=== PATIENT | male | born 1940 | race Caucasian/White ===

== ENCOUNTER → 2018-04-09 | Outpatient (CLI) | payer OTHER | END | disposition home or self-care (01) | LOC: ROC 04-03 15:23 | PROVIDERS: ATTEND Radiology Radiation Oncology | DX: C76.0 Malignant neoplasm of head, face and neck (principal); E78.5 Hyperlipidemia, unspecified; I10 Essential (primary) hypertension; M19.90 Unspecified osteoarthritis, unspecified site | CPT/HCPCS: 99215; G0463 ==

== ENCOUNTER 2018-04-16 10:08 | Outpatient (CLI) | payer OTHER | END 2018-04-16 23:59 | disposition home or self-care (01) | LOC: PETCFH 10:08 | PROVIDERS: ATTEND Radiology Radiation Oncology | DX: C79.89 Secondary malignant neoplasm of other specified sites (principal); K80.20 Calculus of gallbladder without cholecystitis without obstruction; C10.8 Malignant neoplasm of overlapping sites of oropharynx; R59.1 Generalized enlarged lymph nodes; Z93.0 Tracheostomy status | CPT/HCPCS: 78815; A9552 ==